=== PATIENT | male | born 1960 | race African-American/Black ===

== ENCOUNTER 2024-05-16 09:11 | Emergency (ER) | payer BC ==
[2024-05-16] MEDS ORDERED: predniSONE 20 MG TAB ONE (10:10)
[2024-05-16] MEDS ORDERED: Ipratropium/Albuterol 3 ML NEB ONE (10:22)
[2024-05-16 10:37] LABS: #Basophils 0.05 10x3/uL (0.0-0.2); %Eosinophils 7.6 % (0.0-10.0); %Lymphocytes 37.8 % (21.0-51.0); %Neutrophils 43.4 % (42.0-75.0); Hematocrit 45.5 % (42.0-52.0); Hemoglobin 14.6 g/dL (14.0-18.0); Mean Corpuscular HGB CONC 32.1 g/dL (32.0-36.0); Mean Corpuscular Hemoglobin 28.3 pg (27.0-31.0); Mean Corpuscular Volume 88.2 fL (78.0-98.0); Mean Platelet Volume 9.5 fL (7.4-10.4); Platelet Count 206 10x3/uL (130-400); RBC Distribution Width 13.2 % (11.5-14.5); Red Blood Cell (RBC) Count 5.16 mill/uL (4.70-6.10)
[2024-05-16 10:58] LABS: ALT (SGPT) 22 U/L (8-55); AST (SGOT) 26 U/L (5-34); Albumin 4.1 g/dL (3.4-4.8); Alkaline Phosphatase 115 U/L (40-110); Anion Gap 15 mmol/L (10-20); BUN (Urea Nitrogen) 15 mg/dL (8.4-25.7); Bilirubin, Total 1.2 mg/dL (0.2-1.2); Calc. Creatinine Clearance 0 mL/min (70-130); Calcium 9.4 mg/dL (7.8-10.44); Carbon Dioxide 24 mmol/L (23-31); Chloride 106 mmol/L (98-107); Estimated GFR 69; Globulin 3.6 g/dL (2.4-3.5); Glucose 106 mg/dL (80-115); Potassium 4.1 mmol/L (3.5-5.1); Protein, Total 7.7 g/dL (5.8-8.1); Sodium 141 mmol/L (136-145)
[2024-05-16 11:25] LABS: Troponin I Less than 0.010 ng/mL (< 0.028)
[2024-05-16] MEDS ORDERED: Iopamidol-370 76% 500 ML MDV (1 ML CHARGE) ONE (12:58)
== END 2024-05-16 12:37 | disposition home or self-care (01) ==
LOC: ERS 09:11
DX: J18.9 Pneumonia, unspecified organism (principal)
CPT/HCPCS: 36415; 71046; 71275; 80053; 84484; 85025; 93005; 94640; J7512; J7620; Q9967

== ENCOUNTER 2025-04-26 18:56 | Emergency (ER) | payer OTHER, BC ==
[~2025-04-26 18:56] MED LIST: Iopamidol-370 76% 500 ML MDV (1 ML CHARGE) ONE
[2025-04-26] MEDS ORDERED: Metoclopramide HCl 10 MG (2 mL) VIAL ONE (19:29)
[2025-04-26] MEDS ORDERED: diphenhydrAMINE 50 MG/ML VIAL ONE (19:29)
[2025-04-26 20:48] LABS: #Basophils 0.05 10x3/uL (0.0-0.2); #Eosinophils 0.24 10x3/uL (0.0-0.7); #Monocytes 0.44 10x3/uL (0.11-0.59); #Neutrophils 2.75 10x3/uL (1.40-6.50); %Basophils 0.9 % (0.0-1.0); %Eosinophils 4.4 % (0.0-10.0); %Lymphocytes 36.1 % (21.0-51.0); %Monocytes 8.1 % (0.0-10.0); %Neutrophils 50.3 % (42.0-75.0); Hematocrit 43.6 % (42.0-52.0); Hemoglobin 14.1 g/dL (14.0-18.0); Mean Corpuscular Hemoglobin 27.6 pg (27.0-31.0); Mean Corpuscular Volume 85.3 fL (78.0-98.0); Platelet Count 199 10x3/uL (130-400); Red Blood Cell (RBC) Count 5.11 mill/uL (4.70-6.10); White Blood Cell (WBC) Count 5.46 10x3/uL (4.8-10.8)
[2025-04-26 21:03] LABS: INR-International Normal Ratio 1.0; PTT 29.8 sec (22.9-36.1); Prothrombin Time 13.7 sec (12.0-14.7)
[2025-04-26 21:08] LABS: ALT (SGPT) 18 U/L (Less than 45); AST (SGOT) 30 U/L (11-34); Albumin 4.2 g/dL (3.1-4.5); Alkaline Phosphatase 103 U/L (40-110); Anion Gap 18 mmol/L (10-20); BUN (Urea Nitrogen) 11 mg/dL (8.4-25.7); Bilirubin, Total 1.2 mg/dL (0.3-1.2); Calc. Creatinine Clearance 0 mL/min (70-130); Calcium 9.2 mg/dL (7.8-10.44); Carbon Dioxide 19 mmol/L (23-31); Chloride 109 mmol/L (98-107); Globulin 3.3 g/dL (2.4-3.5); Glucose 141 mg/dL (80-115); Potassium 3.8 mmol/L (3.5-5.1); Sodium 142 mmol/L (136-145)
== END 2025-04-26 22:20 | disposition home or self-care (01) ==
LOC: EEVIPCON 18:56 → ERS 18:56
DX: S09.90XA Unspecified injury of head, initial encounter (principal); R29.700 NIHSS score 0; W22.8XXA Striking against or struck by other objects, initial encounter; Y99.0 Civilian activity done for income or pay
CPT/HCPCS: 70496; 70498; 80053; 85025; 85610; 85730; 96374; 96375; J1200; J2765; Q9967